=== PATIENT | female | born 1955 | race African-American/Black ===

== ENCOUNTER 2017-03-03 19:12 | Emergency (ER) | payer BC ==
[~2017-03-03 19:12] MED LIST: ACCUNE1 INH; ACET500CAP PO; ADVAIR100 INH; ADVAIR250 INH; AT25 PO; BIAXIN5 PO; BUSPAR15 M1 PO; CELEXA10 PO; CELEXA20 PO; CENTRUM PO; COVARYX HS PO; FLONASE NAS; L5 PO; LEVAQUIN750 MG PO; NORCO1 TA1 PO; P10 PO; PROAIR HFA INH; PROVENTSOL INH; SINGULAIR1 PO; TRIAMCINOLONE TOP; VITAMIN B-121000 MC1 SL; VITAMIN B12 OTC PO; ZYRTEC ALLGY10 MG PO
== END 2017-03-03 20:50 | disposition home or self-care (01) ==
LOC: ER 19:12
DX: S16.1XXA Strain of muscle, fascia and tendon at neck level, initial encounter (principal); S00.93XA Contusion of unspecified part of head, initial encounter; S80.811A Abrasion, right lower leg, initial encounter; J45.909 Unspecified asthma, uncomplicated; J44.9 Chronic obstructive pulmonary disease, unspecified; F32.9 Major depressive disorder, single episode, unspecified; F41.9 Anxiety disorder, unspecified; Z86.11 Personal history of tuberculosis; Z88.1 Allergy status to other antibiotic agents; Z88.8 Allergy status to other drugs, medicaments and biological substances; Z79.899 Other long term (current) drug therapy; V89.0XXA Person injured in unspecified motor-vehicle accident, nontraffic, initial encounter
CPT/HCPCS: 70450; 71010; 72125; 99284; A9270-GY